=== PATIENT | female | born 1980 | race Asian ===

== ENCOUNTER → 2021-04-01 | Outpatient (CLI) | payer OTHER ==
[2021-04-02 05:07] LABS: RUBELLA AB IGG-REFLAB 4.76 index (Immune >0.99); RUBEOLA (MEASLES) IGG >300.0 AU/mL (Immune >16.4)
== END | disposition home or self-care (01) ==
LOC: LABPV 11:25
PROVIDERS: ATTEND Internal Medicine
DX: Z02.1 Encounter for pre-employment examination (principal)
CPT/HCPCS: 86706; 86735; 86762; 86765; 86787

== ENCOUNTER → 2022-01-01 | Outpatient (CLI) | payer OTHER ==
[2022-01-01 09:36] LABS: BILIRUBIN,URINE NEGATIVE (NEGATIVE); GLUCOSE, URINE (UA) NEGATIVE (NEGATIVE); KETONES,URINE NEGATIVE (NEGATIVE); LEUKOCYTE ESTERASE ,URINE LARGE (NEGATIVE); NITRATE,URINE NEGATIVE (NEGATIVE); OCCULT BLOOD,URINE NEGATIVE (NEGATIVE); PH,URINE 6.5 (5.0-8.0); PROTEIN,URINE NEGATIVE (NEGATIVE); SPECIFIC GRAVITIY, URINE 1.022 (1.003-1.030); UROBILINOGEN,URINE <=1.0 mg/dL (<=1.0)
[2022-01-01 09:36] LABS: BASOPHILS % (AUTO) 0.6 % (0.0-2.0); EOSINOPHILS % (AUTO) 1.4 % (1.0-6.0); HEMOGLOBIN 13.9 g/dL (12.0-16.0); LYMPHOCYTES # (AUTO) 0.9 K/uL (1.0-4.8); LYMPHOCYTES % (AUTO) 13.9 % (22.0-44.0); MEAN CORPUSCULAR HGB CONC 32.4 G/dL (31.0-37.0); MEAN CORPUSCULAR VOLUME 83 fL (80-100); MONOCYTES # (AUTO) 0.3 K/uL (0.1-1.0); MONOCYTES % (AUTO) 5.2 % (2.0-9.0); NEUTROPHILS # (AUTO) 5.2 K/uL (1.8-7.7); NEUTROPHILS % (AUTO) 78.9 % (40.0-70.0); PLATELET COUNT (AUTO) 311 K/uL (150-450); RED BLOOD CELL COUNT(AUTO) 5.16 MIL/uL (4.00-5.20); RED CELL DISTRIBUTION WIDTH 14.3 % (11.5-14.5)
[2022-01-01 09:55] LABS: HEMOGLOBIN A1C 5.5 % (3.8-5.6)
[2022-01-01 10:05] LABS: ALANINE AMINOTRANSFERASE 18 U/L (12-78); ALBUMIN 3.9 g/dL (3.4-5.0); ALKALINE PHOSPHATASE 57 U/L (46-116); ANION GAP 5 mmol/L (8-16); ASPARTATE AMINOTRANSFERASE 15 U/L (15-37); BILIRUBIN,TOTAL 0.5 mg/dL (0.1-1.0); CARBON DIOXIDE 32 mmol/L (22-29); CHLORIDE 100 mmol/L (98-107); CHOL/HDL RATIO 2.2 (3.9-5.7); CHOLESTEROL 214 mg/dL (131-200); CREATININE 0.63 mg/dL (0.60-1.30); GLUCOSE,RANDOM 96 mg/dL (70-110); HDL CHOLESTEROL 96 mg/dL (40-60); LDL CHOL (CALC.) 109 mg/dL (0-130); POTASSIUM 3.6 mmol/L (3.5-5.1); SODIUM SERUM 137 mmol/L (136-145); THYROID STIMULATING HORMONE 0.68 uIU/mL (0.36-3.74); TOTAL PROTEIN, SERUM 7.7 g/dL (6.4-8.2); TRIGLYCERIDES 46 mg/dL (15-150); UREA NITROGEN, BLOOD 6 mg/dL (7-18)
[2022-01-01 10:10] LABS: GLOMERULAR FILTR. RATE CALC > 60 mL/min (>60)
[2022-01-01 10:15] LABS: APPEARANCE,URINE HAZY (CLEAR); RBC,URINE 0-2 /HPF (0-2)
[2022-01-01 10:16] LABS: BACTERIA,URINE Moderate /HPF (None Seen); SQUAMOUS EPITHELIAL CELL,UR Few /LPF (None Seen)
== END | disposition home or self-care (01) ==
LOC: LABMN 09:03
PROVIDERS: ATTEND Internal Medicine
DX: Z00.00 Encounter for general adult medical examination without abnormal findings (principal)
CPT/HCPCS: 80053; 80061; 81001; 82306; 83036; 84443; 85025; 87086

== ENCOUNTER → 2022-05-06 | Outpatient (CLI) | payer OTHER ==
[~2022-05-06] VITALS: Ht 157.5 cm; Wt 59.5 kg
[~2022-05-06] MED LIST: SODIUM CHLORIDE 0.9% 1,000 ML ONE
[2022-05-06 15:06] VITALS: BP 144/78
== END | disposition home or self-care (01) ==
LOC: SRCNTR 14:31
PROVIDERS: ATTEND Internal Medicine
DX: I45.10 Unspecified right bundle-branch block (principal); R94.31 Abnormal electrocardiogram [ECG] [EKG]; R01.1 Cardiac murmur, unspecified; Z87.440 Personal history of urinary (tract) infections
CPT/HCPCS: 93005; G0463; J7030

== ENCOUNTER → 2022-05-12 | Outpatient (CLI) | payer OTHER | END | disposition home or self-care (01) | LOC: RADPV 10:08 | PROVIDERS: ATTEND Internal Medicine | DX: R01.1 Cardiac murmur, unspecified (principal) | CPT/HCPCS: 93306 ==

== ENCOUNTER → 2022-08-01 | Outpatient (CLI) | payer OTHER ==
[2022-08-01 08:56] LABS: BASOPHILS % (AUTO) 0.9 % (0.0-2.0); EOSINOPHILS % (AUTO) 1.9 % (1.0-6.0); HEMATOCRIT 40.4 % (36-46); HEMOGLOBIN 13.1 g/dL (12.0-16.0); LYMPHOCYTES # (AUTO) 1.2 K/uL (1.0-4.8); LYMPHOCYTES % (AUTO) 21.3 % (22.0-44.0); MEAN CORPUSCULAR HEMOGLOBIN 26.5 pg (26.0-34.0); MEAN CORPUSCULAR HGB CONC 32.3 G/dL (31.0-37.0); MEAN CORPUSCULAR VOLUME 82 fL (80-100); MONOCYTES # (AUTO) 0.3 K/uL (0.1-1.0); MONOCYTES % (AUTO) 5.8 % (2.0-9.0); NEUTROPHILS # (AUTO) 3.9 K/uL (1.8-7.7); NEUTROPHILS % (AUTO) 70.1 % (40.0-70.0); PLATELET COUNT (AUTO) 331 K/uL (150-450); RED BLOOD CELL COUNT(AUTO) 4.93 MIL/uL (4.00-5.20); RED CELL DISTRIBUTION WIDTH 15.1 % (11.5-14.5)
[2022-08-01 09:08] LABS: HEMOGLOBIN A1C 5.9 % (3.8-5.6)
[2022-08-01 09:17] LABS: ALANINE AMINOTRANSFERASE 21 U/L (12-78); ALBUMIN 3.7 g/dL (3.4-5.0); ALKALINE PHOSPHATASE 54 U/L (46-116); ANION GAP 12 mmol/L (8-16); ASPARTATE AMINOTRANSFERASE 17 U/L (15-37); BILIRUBIN,TOTAL 0.2 mg/dL (0.1-1.0); CALCIUM, TOTAL 8.6 mg/dL (8.8-10.5); CARBON DIOXIDE 27 mmol/L (22-29); CHLORIDE 102 mmol/L (98-107); GLOMERULAR FILTR. RATE CALC > 60 mL/min (>60); GLUCOSE,RANDOM 110 mg/dL (70-110); POTASSIUM 3.7 mmol/L (3.5-5.1); SODIUM SERUM 141 mmol/L (136-145); TOTAL PROTEIN, SERUM 7.6 g/dL (6.4-8.2)
== END | disposition home or self-care (01) ==
LOC: LABMN 08:34
PROVIDERS: ATTEND Internal Medicine
DX: Z79.899 Other long term (current) drug therapy (principal); Z82.49 Family history of ischemic heart disease and other diseases of the circulatory system
CPT/HCPCS: 80053; 83036; 85025

== ENCOUNTER → 2022-08-12 | Outpatient (CLI) | payer OTHER | END | disposition home or self-care (01) | LOC: LABMN 10:55 | PROVIDERS: ATTEND Internal Medicine | DX: E83.51 Hypocalcemia (principal) | CPT/HCPCS: 82306 ==

== ENCOUNTER 2023-04-24 18:09 | Emergency (ER) | payer OTHER ==
[~2023-04-24] VITALS: Ht 157.5 cm; Wt 59.1 kg
[2023-04-24 18:15] VITALS: BP 128/86; PULSE 104; RESP 16; TEMP 98
[2023-04-24 18:56] LABS: COVID AG,FIA SOURCE NASAL SWAB
[2023-04-24 19:16] LABS: INFLUENZA TYPE A NEGATIVE FOR TYPE A (NEGATIVE); INFLUENZA TYPE B NEGATIVE FOR TYPE B (NEGATIVE)
[2023-04-24 19:17] LABS: SARS-COV2 (COVID) ANTIGEN,FIA Negative (Negative)
[2023-04-24 19:20] LABS: RAPID GROUP A STREP NEGATIVE (NEGATIVE)
[2023-04-24] MEDS ORDERED: GUAIFDM PO (19:57)
[2023-04-24] MEDS ORDERED: CLOB15CR10 TP (19:57)
[2023-04-24] MEDS ORDERED: IBUP-45 PO (19:57)
[2023-04-24] MEDS ORDERED: ACET-66 PO (19:57)
[2023-04-24] MEDS: ACETAMINOPHEN 500 MG TABLET PO ONE (20:00)
[2023-04-24] MEDS: GuaiFENesin/D-METHORPHAN [SUGAR-FREE] 200-20MG/10 ML SYRUP UDCUP PO ONE (20:01)
[2023-04-24] MEDS: IBUPROFEN 200 MG TABLET PO ONE (20:01)
== END 2023-04-24 20:10 | disposition still patient (30) ==
LOC: EMS 18:36
DX: J06.9 Acute upper respiratory infection, unspecified (principal); L30.9 Dermatitis, unspecified; Z20.822 Contact with and (suspected) exposure to COVID-19; Z98.890 Other specified postprocedural states
CPT/HCPCS: 87430; 87804; 99284; Z7502; Z7610

== ENCOUNTER 2023-06-26 08:46 | Emergency (ER) | payer OTHER ==
[~2023-06-26] VITALS: Ht 157.5 cm; Wt 50.0 kg
[~2023-06-26 08:46] MED LIST changes: +ACET-66 PO; +CLOB15CR10 TP; +GUAIFDM PO; +IBUP-45 PO; -SODIUM CHLORIDE 0.9% 1,000 ML ONE
[2023-06-26 08:59] VITALS: TEMP 98.3
[2023-06-26] MEDS ORDERED: IBUP-1492 PO (11:11)
[2023-06-26] MEDS ORDERED: CEPH-558 PO (11:19)
[2023-06-26 11:39] VITALS: BP 118/66; PULSE 86; RESP 16
== END 2023-06-26 11:54 | disposition home or self-care (01) ==
LOC: EMS 09:01
DX: M25.532 Pain in left wrist (principal); Z98.890 Other specified postprocedural states
CPT/HCPCS: 99283

== ENCOUNTER 2023-06-28 07:19 | Emergency (ER) | payer OTHER ==
[~2023-06-28] VITALS: Ht 157.5 cm; Wt 50.0 kg
[~2023-06-28 07:19] MED LIST changes: +CEPH-558 PO; +IBUP-1492 PO
[2023-06-28 07:30] VITALS: BP 110/68; PULSE 87; RESP 16; TEMP 97.9
== END 2023-06-28 08:12 | disposition home or self-care (01) ==
LOC: EMS 07:19
DX: M25.532 Pain in left wrist (principal); Z98.890 Other specified postprocedural states
CPT/HCPCS: 99281; Z7502

== ENCOUNTER 2023-07-23 21:24 | Inpatient (IN) | payer OTHER ==
[~2023-07-23] VITALS: Ht 157.5 cm; Wt 52.7 kg
[2023-07-23] MEDS ORDERED: 0.9% SODIUM CHLORIDE 10 ML SYRINGE IVP PRN (22:00)
[2023-07-23 22:38] LABS: ANION GAP 8 mmol/L (8-16); CALCIUM, TOTAL 8.2 mg/dL (8.8-10.5); CARBON DIOXIDE 29 mmol/L (22-29); CHLORIDE 96 mmol/L (98-107); CREATININE 0.59 mg/dL (0.60-1.30); GLOMERULAR FILTR. RATE CALC > 60 mL/min (>60); GLUCOSE,RANDOM 141 mg/dL (70-110); POTASSIUM 3.7 mmol/L (3.5-5.1); SODIUM SERUM 133 mmol/L (136-145); UREA NITROGEN, BLOOD 6 mg/dL (7-18)
[2023-07-23] MEDS: SODIUM CHLORIDE 0.9% 1,600 ML IV ONE (22:42)
[2023-07-23] MEDS: PIPERACILLIN/TAZO 3.375 GM/D5W 50 ML IV ONE (22:43)
[2023-07-23 22:47] LABS: TROPONIN I-HIGH SENSITIVITY 15 ng/L (<51)
[2023-07-23 22:51] LABS: ALANINE AMINOTRANSFERASE 14 U/L (12-78); ALBUMIN 2.2 g/dL (3.4-5.0); ALKALINE PHOSPHATASE 138 U/L (46-116); ASPARTATE AMINOTRANSFERASE 21 U/L (15-37); BILIRUBIN,TOTAL 0.4 mg/dL (0.1-1.0); HCG,QUANTITATIVE 1 mIU/mL (0-6); TOTAL PROTEIN, SERUM 7.8 g/dL (6.4-8.2)
[2023-07-23 23:12] LABS: BASOPHILS % (AUTO) 0.2 % (0.0-2.0); EOSINOPHILS % (AUTO) 0.5 % (1.0-6.0); HEMATOCRIT 28.3 % (36-46); HEMOGLOBIN 8.7 g/dL (12.0-16.0); LYMPHOCYTES # (AUTO) 0.6 K/uL (1.0-4.8); MEAN CORPUSCULAR HEMOGLOBIN 21.4 pg (26.0-34.0); MEAN CORPUSCULAR HGB CONC 30.8 G/dL (31.0-37.0); MEAN CORPUSCULAR VOLUME 70 fL (80-100); MONOCYTES # (AUTO) 0.6 K/uL (0.1-1.0); MONOCYTES % (AUTO) 4.4 % (2.0-9.0); NEUTROPHILS # (AUTO) 12.6 K/uL (1.8-7.7); PLATELET COUNT (AUTO) 675 K/uL (150-450); RED BLOOD CELL COUNT(AUTO) 4.07 MIL/uL (4.00-5.20); RED CELL DISTRIBUTION WIDTH 19.2 % (11.5-14.5); WHITE BLOOD COUNT (AUTO) 13.9 K/uL (4.5-11.0)
[2023-07-23 23:13] LABS: NEUTROPHILS % (AUTO) 90.9 % (40.0-70.0)
[2023-07-23] MEDS ORDERED: ONDANSETRON HCL 4 MG/2 ML VIAL IVP PRN (23:15)
[2023-07-23 23:19] LABS: RBC MORPHOLOGY COMMENT ABNORMAL RBC MORPH
[2023-07-23 23:35] LABS: LACTATE DEHYDROGENASE 190 U/L (81-234)
[2023-07-23 23:47] LABS: D-DIMER 3.5 mg/L FEU (0.00-0.50); INR 1.1 (0.9-1.1); PROTHROMBIN TIME 11.4 SEC (9.4-11.6)
[2023-07-24 00:25] LABS: APPEARANCE,URINE HAZY (CLEAR); BILIRUBIN,URINE NEGATIVE (NEGATIVE); COLOR,URINE LIGHT YELLOW (YELLOW); GLUCOSE, URINE (UA) NEGATIVE (NEGATIVE); KETONES,URINE NEGATIVE (NEGATIVE); LEUKOCYTE ESTERASE ,URINE MODERATE (NEGATIVE); NITRATE,URINE NEGATIVE (NEGATIVE); OCCULT BLOOD,URINE MODERATE (NEGATIVE); PROTEIN,URINE NEGATIVE (NEGATIVE); SPECIFIC GRAVITIY, URINE 1.011 (1.003-1.030); UROBILINOGEN,URINE <=1.0 mg/dL (<=1.0)
[2023-07-24] MEDS: HEPARIN SODIUM,PORCINE 5,000 UNITS/ML VIAL SQ SCH (00:36)
[2023-07-24] MEDS: ACETAMINOPHEN 650 MG/ISO-OSM 65 ML IV ONE (00:36)
[2023-07-24] MEDS: SODIUM CHLORIDE 0.9% 1,000 ML IV SCH (00:37)
[2023-07-24 00:49] LABS: AMORPHOUS SEDIMENT,UR Few /LPF (None Seen); BACTERIA,URINE None Seen /HPF (None Seen); SQUAMOUS EPITHELIAL CELL,UR Moderate /LPF (None Seen); YEAST,URINE None Seen /HPF (None Seen)
[2023-07-24] MEDS ORDERED: IOHEXOL 350 MG/ML 100 ML VIAL ONE (00:49)
[2023-07-24] MEDS ORDERED: SODIUM CHLORIDE 0.9% 100 ML ONE (00:49)
[2023-07-24 00:52] LABS: TROPONIN I-HIGH SENSITIVITY 33 ng/L (<51)
[2023-07-24 01:51] LABS: % IRON SATURATION 9.1 % (22-44)
[2023-07-24] MEDS: CefTRIAXone SODIUM 2 GM in DEXTROSE 5%-WATER 50 ML IV SCH (01:51)
[2023-07-24] MEDS: DOXYCYCLINE HYCLATE 200 MG in DEXTROSE 5%-WATER 250 ML IV ONE (01:52)
[2023-07-24 01:57] LABS: RETICULOCYTE % (AUTO) 1.4 % (0.5-2.3)
[2023-07-24 06:54] VITALS: BP 112/79; PULSE 88; RESP 19; TEMP 97.8
[2023-07-24 07:55] LABS: BASOPHILS % (AUTO) 0.4 % (0.0-2.0); EOSINOPHILS % (AUTO) 0.5 % (1.0-6.0); HEMATOCRIT 24.8 % (36-46); HEMOGLOBIN 7.6 g/dL (12.0-16.0); LYMPHOCYTES # (AUTO) 0.8 K/uL (1.0-4.8); LYMPHOCYTES % (AUTO) 7.1 % (22.0-44.0); MEAN CORPUSCULAR HEMOGLOBIN 21.6 pg (26.0-34.0); MEAN CORPUSCULAR HGB CONC 30.6 G/dL (31.0-37.0); MEAN CORPUSCULAR VOLUME 70 fL (80-100); MONOCYTES # (AUTO) 0.5 K/uL (0.1-1.0); MONOCYTES % (AUTO) 4.6 % (2.0-9.0); NEUTROPHILS # (AUTO) 9.9 K/uL (1.8-7.7); PLATELET COUNT (AUTO) 548 K/uL (150-450); RED BLOOD CELL COUNT(AUTO) 3.52 MIL/uL (4.00-5.20); WHITE BLOOD COUNT (AUTO) 11.3 K/uL (4.5-11.0)
[2023-07-24 07:58] LABS: NEUTROPHILS % (AUTO) 87.4 % (40.0-70.0)
[2023-07-24 08:00] VITALS: BP 105/62; PULSE 83; RESP 19; TEMP 97.9
[2023-07-24 08:09] LABS: ANION GAP 11 mmol/L (8-16); CALCIUM, TOTAL 7.7 mg/dL (8.8-10.5); CARBON DIOXIDE 25 mmol/L (22-29); CHLORIDE 106 mmol/L (98-107); CREATININE 0.42 mg/dL (0.60-1.30); GLOMERULAR FILTR. RATE CALC > 60 mL/min (>60); GLUCOSE,RANDOM 105 mg/dL (70-110); POTASSIUM 3.5 mmol/L (3.5-5.1); SODIUM SERUM 142 mmol/L (136-145); UREA NITROGEN, BLOOD 2 mg/dL (7-18)
[2023-07-24 08:40] LABS: RBC MORPHOLOGY COMMENT ABNORMAL RBC MORPH
[2023-07-24 13:00] VITALS: BP 110/69; PULSE 92; RESP 20; TEMP 98.2
[2023-07-24] MEDS: AZITHROMYCIN 500 MG TABLET PO SCH (16:43)
[2023-07-24 18:22] LABS: INFLUENZA TYPE A NEGATIVE FOR TYPE A (NEGATIVE); INFLUENZA TYPE B NEGATIVE FOR TYPE B (NEGATIVE)
[2023-07-24 18:48] LABS: COVID AG,FIA SOURCE NASAL SWAB
[2023-07-24 19:24] LABS: SARS-COV2 (COVID) ANTIGEN,FIA Negative (Negative)
[2023-07-24 21:30] VITALS: BP 115/62; PULSE 109; RESP 20; TEMP 98.9
[2023-07-25 01:00] VITALS: BP 113/74; PULSE 103; RESP 20; TEMP 98.4
[2023-07-25 05:30] VITALS: BP 109/65; RESP 20; TEMP 97.4
[2023-07-25 09:00] VITALS: BP 111/67; PULSE 98; RESP 18; TEMP 98.3
[2023-07-25 12:00] VITALS: BP 112/73; PULSE 95; RESP 18; TEMP 98.2
[2023-07-25 12:35] LABS: URIC ACID 2.4 mg/dL (2.6-7.2)
[2023-07-25 12:46] LABS: C-REACTIVE PROTEIN QUANT 17.02 mg/dL (0.00-0.30)
[2023-07-25 16:26] VITALS: BP 126/77; PULSE 97; RESP 18; TEMP 99.3
[2023-07-25] MEDS: BENZOCAINE/MENTHOL LOZENGE PO PRN (17:56)
[2023-07-25 22:15] VITALS: BP 108/62; PULSE 98; RESP 20; TEMP 98.1
[2023-07-26 01:50] VITALS: BP 109/64; PULSE 96; RESP 20; TEMP 98.5
[2023-07-26 06:00] VITALS: BP 104/64; PULSE 87; RESP 20; TEMP 97.4
[2023-07-26 12:37] VITALS: BP 123/77; PULSE 101; RESP 18; TEMP 98
[2023-07-26 13:12] VITALS: BP 108/66; PULSE 101; RESP 18; TEMP 97.9
[2023-07-26 19:59] VITALS: BP 113/72; PULSE 104; RESP 18; TEMP 98.7
[2023-07-27 04:44] VITALS: BP 118/66; PULSE 96; RESP 18; TEMP 98.7
[2023-07-27 07:17] LABS: ANION GAP 8 mmol/L (8-16); CALCIUM, TOTAL 8.8 mg/dL (8.8-10.5); CARBON DIOXIDE 27 mmol/L (22-29); CHLORIDE 102 mmol/L (98-107); CREATININE 0.45 mg/dL (0.60-1.30); GLOMERULAR FILTR. RATE CALC > 60 mL/min (>60); GLUCOSE,RANDOM 107 mg/dL (70-110); SODIUM SERUM 137 mmol/L (136-145); UREA NITROGEN, BLOOD 4 mg/dL (7-18)
[2023-07-27 07:33] LABS: BASOPHILS % (AUTO) 0.4 % (0.0-2.0); EOSINOPHILS % (AUTO) 1.7 % (1.0-6.0); HEMATOCRIT 27.2 % (36-46); HEMOGLOBIN 8.5 g/dL (12.0-16.0); LYMPHOCYTES # (AUTO) 0.9 K/uL (1.0-4.8); LYMPHOCYTES % (AUTO) 8.9 % (22.0-44.0); MEAN CORPUSCULAR HEMOGLOBIN 22.1 pg (26.0-34.0); MEAN CORPUSCULAR HGB CONC 31.4 G/dL (31.0-37.0); MEAN CORPUSCULAR VOLUME 70 fL (80-100); MONOCYTES # (AUTO) 0.5 K/uL (0.1-1.0); MONOCYTES % (AUTO) 5.6 % (2.0-9.0); NEUTROPHILS % (AUTO) 83.4 % (40.0-70.0); PLATELET COUNT (AUTO) 597 K/uL (150-450); RED BLOOD CELL COUNT(AUTO) 3.86 MIL/uL (4.00-5.20); RED CELL DISTRIBUTION WIDTH 19.1 % (11.5-14.5); WHITE BLOOD COUNT (AUTO) 9.6 K/uL (4.5-11.0)
[2023-07-27 07:37] LABS: RBC MORPHOLOGY COMMENT ABNORMAL RBC MORPH
[2023-07-27 08:13] VITALS: BP 115/68; PULSE 108; RESP 18; TEMP 98.1
[2023-07-27 16:12] VITALS: BP 109/69; PULSE 98; RESP 20; TEMP 98.1
[2023-07-27 19:25] VITALS: BP 117/74; PULSE 103; RESP 18; TEMP 97.8
[2023-07-28 04:05] VITALS: BP 100/58; PULSE 89; RESP 18; TEMP 98.8
[2023-07-28 06:47] LABS: BASOPHILS % (AUTO) 0.5 % (0.0-2.0); EOSINOPHILS % (AUTO) 1.4 % (1.0-6.0); HEMOGLOBIN 8.5 g/dL (12.0-16.0); LYMPHOCYTES # (AUTO) 0.8 K/uL (1.0-4.8); LYMPHOCYTES % (AUTO) 8.2 % (22.0-44.0); MEAN CORPUSCULAR HEMOGLOBIN 21.9 pg (26.0-34.0); MEAN CORPUSCULAR HGB CONC 31.3 G/dL (31.0-37.0); MEAN CORPUSCULAR VOLUME 70 fL (80-100); MONOCYTES # (AUTO) 0.6 K/uL (0.1-1.0); MONOCYTES % (AUTO) 5.5 % (2.0-9.0); NEUTROPHILS # (AUTO) 8.7 K/uL (1.8-7.7); NEUTROPHILS % (AUTO) 84.4 % (40.0-70.0); PLATELET COUNT (AUTO) 574 K/uL (150-450); RED BLOOD CELL COUNT(AUTO) 3.86 MIL/uL (4.00-5.20); RED CELL DISTRIBUTION WIDTH 19.3 % (11.5-14.5); WHITE BLOOD COUNT (AUTO) 10.3 K/uL (4.5-11.0)
[2023-07-28 08:16] LABS: QUANTIFERON+, Nil Value 0.04 IU/mL; QUANTIFERON+,Mitogen Value 1.15 IU/mL; QUANTIFERON+,TB1 Antigen Value 0.03 IU/mL; QUANTIFERON+,TB2 Antigen Value 0.04 IU/mL; QUANTIFERON, TB GOLD PLUS Negative (Negative)
[2023-07-28 09:15] VITALS: BP 112/72; PULSE 96; RESP 20; TEMP 98.5
[2023-07-28 15:57] VITALS: BP 109/66; PULSE 105; RESP 20; TEMP 98.5
[2023-07-28 20:25] VITALS: BP 102/57; PULSE 98; RESP 20; TEMP 98.8
[2023-07-29 04:06] VITALS: BP 101/58; PULSE 92; RESP 20; TEMP 99.1
[2023-07-29 06:54] LABS: BASOPHILS % (AUTO) 0.2 % (0.0-2.0); EOSINOPHILS % (AUTO) 1.5 % (1.0-6.0); HEMATOCRIT 26.8 % (36-46); HEMOGLOBIN 8.3 g/dL (12.0-16.0); LYMPHOCYTES % (AUTO) 7.7 % (22.0-44.0); MEAN CORPUSCULAR HEMOGLOBIN 21.7 pg (26.0-34.0); MEAN CORPUSCULAR HGB CONC 31.1 G/dL (31.0-37.0); MEAN CORPUSCULAR VOLUME 70 fL (80-100); MONOCYTES # (AUTO) 0.5 K/uL (0.1-1.0); MONOCYTES % (AUTO) 4.3 % (2.0-9.0); NEUTROPHILS # (AUTO) 10.8 K/uL (1.8-7.7); PLATELET COUNT (AUTO) 623 K/uL (150-450); RED BLOOD CELL COUNT(AUTO) 3.84 MIL/uL (4.00-5.20); RED CELL DISTRIBUTION WIDTH 19.6 % (11.5-14.5); WHITE BLOOD COUNT (AUTO) 12.6 K/uL (4.5-11.0)
[2023-07-29 07:06] LABS: NEUTROPHILS % (AUTO) 86.3 % (40.0-70.0)
[2023-07-29 08:09] VITALS: BP 103/61; PULSE 94; RESP 18; TEMP 98.5
[2023-07-29] MEDS: MULTIVITAMINS WITH MINERALS, THERAPEUTIC TABLET PO SCH (10:14)
[2023-07-29 13:17] LABS: HIV 1-2 SCREEN 4TH GEN W/RFLX Non Reactive (Non Reactive)
[2023-07-29 17:06] LABS: S PNEUMO SOURCE Urine; STREP PNEUMONIAE AG URINE Negative (Negative)
[2023-07-29] MEDS: FERROUS SULFATE 325 MG EC TABLET PO SCH (17:49)
[2023-07-29 19:30] VITALS: BP 117/67; PULSE 116; RESP 18; TEMP 100.6
[2023-07-29] MEDS: ACETAMINOPHEN 325 MG TABLET PO PRN (19:31)
[2023-07-29 20:50] VITALS: TEMP 98.6
[2023-07-30] VITALS (8 sets, daily range): BP systolic 100–110; BP diastolic 59–73; PULSE 85–104; RESP 18–20; TEMP 97.7–101
[2023-07-30 07:15] LABS: BASOPHILS % (AUTO) 0.2 % (0.0-2.0); EOSINOPHILS % (AUTO) 1.5 % (1.0-6.0); HEMATOCRIT 26.8 % (36-46); HEMOGLOBIN 8.2 g/dL (12.0-16.0); LYMPHOCYTES # (AUTO) 0.8 K/uL (1.0-4.8); LYMPHOCYTES % (AUTO) 5.9 % (22.0-44.0); MEAN CORPUSCULAR HEMOGLOBIN 21.7 pg (26.0-34.0); MEAN CORPUSCULAR HGB CONC 30.7 G/dL (31.0-37.0); MEAN CORPUSCULAR VOLUME 71 fL (80-100); MONOCYTES # (AUTO) 0.5 K/uL (0.1-1.0); MONOCYTES % (AUTO) 3.8 % (2.0-9.0); NEUTROPHILS # (AUTO) 11.5 K/uL (1.8-7.7); PLATELET COUNT (AUTO) 571 K/uL (150-450); RED CELL DISTRIBUTION WIDTH 18.9 % (11.5-14.5)
[2023-07-30 07:25] LABS: NEUTROPHILS % (AUTO) 88.6 % (40.0-70.0)
[2023-07-30 13:06] LABS: HEPATITIS A ANTIBODY IGM Negative (Negative); HEPATITIS B CORE IGM Negative (Negative); HEPATITIS C AB (EIA) Non Reactive (Non Reactive)
[2023-07-30 15:29] LABS: APPEARANCE,URINE CLEAR (CLEAR); BILIRUBIN,URINE NEGATIVE (NEGATIVE); COLOR,URINE LIGHT YELLOW (YELLOW); GLUCOSE, URINE (UA) NEGATIVE (NEGATIVE); KETONES,URINE NEGATIVE (NEGATIVE); LEUKOCYTE ESTERASE ,URINE NEGATIVE (NEGATIVE); NITRATE,URINE NEGATIVE (NEGATIVE); OCCULT BLOOD,URINE NEGATIVE (NEGATIVE); PH,URINE 7.5 (5.0-8.0); PROTEIN,URINE NEGATIVE (NEGATIVE); SPECIFIC GRAVITIY, URINE 1.011 (1.003-1.030); UROBILINOGEN,URINE <=1.0 mg/dL (<=1.0)
[2023-07-30 17:06] LABS: LEGIONELLA PNEUMO AG URINE Negative (Negative)
[2023-07-30] MEDS: PIPERACILLIN/TAZO 3.375 GM/D5W 50 ML IV SCH (17:56)
[2023-07-31 04:39] VITALS: BP 106/64; PULSE 101; RESP 18; TEMP 101
[2023-07-31 07:02] LABS: BASOPHILS % (AUTO) 0.3 % (0.0-2.0); EOSINOPHILS % (AUTO) 1.1 % (1.0-6.0); HEMOGLOBIN 8.1 g/dL (12.0-16.0); LYMPHOCYTES # (AUTO) 0.6 K/uL (1.0-4.8); LYMPHOCYTES % (AUTO) 6.8 % (22.0-44.0); MEAN CORPUSCULAR HGB CONC 30.9 G/dL (31.0-37.0); MEAN CORPUSCULAR VOLUME 71 fL (80-100); MONOCYTES # (AUTO) 0.5 K/uL (0.1-1.0); NEUTROPHILS # (AUTO) 7.4 K/uL (1.8-7.7); PLATELET COUNT (AUTO) 549 K/uL (150-450); RED BLOOD CELL COUNT(AUTO) 3.67 MIL/uL (4.00-5.20); RED CELL DISTRIBUTION WIDTH 18.9 % (11.5-14.5); WHITE BLOOD COUNT (AUTO) 8.6 K/uL (4.5-11.0)
[2023-07-31 07:10] VITALS: BP 103/70; PULSE 81; RESP 18; TEMP 98.1
[2023-07-31 07:35] LABS: NEUTROPHILS % (AUTO) 85.8 % (40.0-70.0)
[2023-07-31 07:36] LABS: RBC MORPHOLOGY COMMENT ABNORMAL RBC MORPH
[2023-07-31 16:00] VITALS: BP 105/68; PULSE 78; RESP 18; TEMP 98.5
[2023-07-31] MEDS: LIDOCAINE 1% 10 ML VIAL IM ONE (16:48)
[2023-07-31 19:55] VITALS: BP 120/69; PULSE 98; RESP 18; TEMP 99.7
[2023-07-31 19:55] LABS: SPECIMENTYPE,BODY FLUID SYNOVIAL
[2023-07-31 21:41] LABS: APPEARANCE,SPUN,BODY FLUID CLEAR (CLEAR); APPEARANCE,UNSPUN,BODY FLUID TURBID (CLEAR); COLOR,BODY FLUID ORANGE (LT YELLOW); TOTAL VOLUME,BODY FLUID 3 mL
[2023-07-31 21:43] LABS: BASOPHILS,BODY FLUID 0 %; CRYSTALS, SYNOVIAL FLUID None Seen (None Seen); EOSINOPHILS,BF (ANAL) 0 %; LYMPHOCYTES,BODY FLUID 2 %; MONOCYTES,BODY FLUID 4 %; NEUTROPHILS,BODY FLUID 94 %; WBC, BODY FLUID 21680 /cu. mm.
[2023-08-01 00:01] VITALS: BP 101/59; PULSE 92; RESP 18; TEMP 98.5
[2023-08-01 05:45] VITALS: BP 113/67; PULSE 88; RESP 18; TEMP 98.5
[2023-08-01 08:01] VITALS: BP 101/66; PULSE 87; RESP 18; TEMP 97.9
[2023-08-01 15:48] VITALS: BP 101/63; PULSE 91; RESP 18; TEMP 99.2
[2023-08-01] MEDS: VANCOMYCIN HCL 1.25 GM in DEXTROSE 5%-WATER 250 ML IV ONE (16:09)
[2023-08-01 19:25] VITALS: BP 111/70; PULSE 100; RESP 18; TEMP 98.9
[2023-08-01 22:06] LABS: ANA,IFA (TITER & PATTERN) Negative
[2023-08-01] MEDS: VANCOMYCIN HCL 1 GM in DEXTROSE 5%-WATER 250 ML IV SCH (23:36)
[2023-08-02 05:55] VITALS: BP 100/62; PULSE 85; RESP 18; TEMP 98.1
[2023-08-02 07:57] VITALS: BP 104/63; PULSE 91; RESP 18; TEMP 98
[2023-08-02 08:28] LABS: ANION GAP 12 mmol/L (8-16); CALCIUM, TOTAL 9.1 mg/dL (8.8-10.5); CARBON DIOXIDE 25 mmol/L (22-29); CHLORIDE 99 mmol/L (98-107); CREATININE 0.64 mg/dL (0.60-1.30); GLOMERULAR FILTR. RATE CALC > 60 mL/min (>60); GLUCOSE,RANDOM 132 mg/dL (70-110); POTASSIUM 3.7 mmol/L (3.5-5.1); SODIUM SERUM 136 mmol/L (136-145); UREA NITROGEN, BLOOD 7 mg/dL (7-18)
[2023-08-02 16:07] VITALS: BP 99/64; PULSE 102; RESP 20; TEMP 98.5
[2023-08-02 20:29] VITALS: BP 128/89; PULSE 116; RESP 20; TEMP 98.8
[2023-08-02 22:00] VITALS: PULSE 103
[2023-08-03 05:52] VITALS: BP 100/55; PULSE 89; RESP 20; TEMP 98.3
[2023-08-03 06:59] LABS: ANION GAP 10 mmol/L (8-16); C-REACTIVE PROTEIN QUANT 12.38 mg/dL (0.00-0.30); CALCIUM, TOTAL 9.4 mg/dL (8.8-10.5); CARBON DIOXIDE 27 mmol/L (22-29); CHLORIDE 97 mmol/L (98-107); GLOMERULAR FILTR. RATE CALC > 60 mL/min (>60); GLUCOSE,RANDOM 154 mg/dL (70-110); POTASSIUM 3.6 mmol/L (3.5-5.1); SODIUM SERUM 134 mmol/L (136-145); UREA NITROGEN, BLOOD 7 mg/dL (7-18); VANCOMYCIN,RANDOM 19.8 mcg/mL (25.0-50.0)
[2023-08-03 08:33] VITALS: BP 95/61; PULSE 95; RESP 20; TEMP 98.2
[2023-08-03 15:35] VITALS: BP 100/64; PULSE 96; RESP 18; TEMP 98.1
[2023-08-03] MEDS: VANCOMYCIN HCL 750 MG in DEXTROSE 5%-WATER 250 ML IV SCH (17:38)
[2023-08-03 19:41] VITALS: BP 114/69; PULSE 99; RESP 18; TEMP 99.6
[2023-08-04 04:35] VITALS: BP 100/57; PULSE 94; RESP 18; TEMP 98.9
[2023-08-04 06:06] LABS: LYME TOTAL ANTIBODY CIA Negative (Negative)
[2023-08-04 07:26] LABS: ANION GAP 10 mmol/L (8-16); CALCIUM, TOTAL 8.8 mg/dL (8.8-10.5); CARBON DIOXIDE 26 mmol/L (22-29); CHLORIDE 99 mmol/L (98-107); GLOMERULAR FILTR. RATE CALC > 60 mL/min (>60); GLUCOSE,RANDOM 140 mg/dL (70-110); POTASSIUM 3.4 mmol/L (3.5-5.1); SODIUM SERUM 135 mmol/L (136-145); UREA NITROGEN, BLOOD 7 mg/dL (7-18)
[2023-08-04 08:02] VITALS: BP 105/63; PULSE 101; RESP 18; TEMP 99.3
[2023-08-04 12:06] LABS: PARVOVIRUS B19 AB IGM 0.2 index (0.0-0.8)
[2023-08-04 16:08] VITALS: BP 111/66; PULSE 98; RESP 18; TEMP 98.2
[2023-08-04 20:19] VITALS: BP 108/60; PULSE 113; RESP 18; TEMP 101.3
[2023-08-04 23:30] VITALS: BP 110/77; PULSE 104; RESP 20; TEMP 98.5
[2023-08-05 05:17] VITALS: BP 98/68; PULSE 78; RESP 18; TEMP 98.7
[2023-08-05 06:25] LABS: ANION GAP 9 mmol/L (8-16); C-REACTIVE PROTEIN QUANT 12.57 mg/dL (0.00-0.30); CALCIUM, TOTAL 9.3 mg/dL (8.8-10.5); CARBON DIOXIDE 27 mmol/L (22-29); CHLORIDE 100 mmol/L (98-107); GLOMERULAR FILTR. RATE CALC > 60 mL/min (>60); GLUCOSE,RANDOM 107 mg/dL (70-110); POTASSIUM 3.8 mmol/L (3.5-5.1); SODIUM SERUM 136 mmol/L (136-145); UREA NITROGEN, BLOOD 6 mg/dL (7-18)
[2023-08-05 08:06] VITALS: BP 96/58; PULSE 89; RESP 18; TEMP 98.3
[2023-08-05 15:34] VITALS: BP 119/72; PULSE 106; RESP 20; TEMP 99.2
[2023-08-05 19:46] VITALS: BP 113/69; PULSE 111; RESP 20; TEMP 100.3
[2023-08-06 00:02] VITALS: PULSE 90; TEMP 97.8
[2023-08-06] MEDS ORDERED: SODIUM CHLORIDE 3% 15 ML NEB SOLUTION NEB ONE (00:05)
[2023-08-06 05:20] VITALS: BP 115/70; PULSE 89; RESP 20; TEMP 99.4
[2023-08-06 07:09] LABS: BASOPHILS % (AUTO) 0.2 % (0.0-2.0); EOSINOPHILS % (AUTO) 1.1 % (1.0-6.0); HEMATOCRIT 25.2 % (36-46); HEMOGLOBIN 7.8 g/dL (12.0-16.0); LYMPHOCYTES % (AUTO) 6.5 % (22.0-44.0); MEAN CORPUSCULAR HEMOGLOBIN 21.9 pg (26.0-34.0); MEAN CORPUSCULAR VOLUME 71 fL (80-100); MONOCYTES # (AUTO) 0.5 K/uL (0.1-1.0); MONOCYTES % (AUTO) 3.2 % (2.0-9.0); NEUTROPHILS # (AUTO) 13.3 K/uL (1.8-7.7); PLATELET COUNT (AUTO) 572 K/uL (150-450); RED BLOOD CELL COUNT(AUTO) 3.57 MIL/uL (4.00-5.20); RED CELL DISTRIBUTION WIDTH 19.7 % (11.5-14.5); WHITE BLOOD COUNT (AUTO) 14.9 K/uL (4.5-11.0)
[2023-08-06 08:03] VITALS: BP 115/76; PULSE 91; RESP 20; TEMP 99
[2023-08-06 08:44] LABS: RBC MORPHOLOGY COMMENT ABNORMAL RBC MORPH
[2023-08-06 12:47] LABS: MTB PCR w/Rif. Resistance-SPUT NOT DETECTED (Not Detectd)
[2023-08-06 12:54] LABS: MTB PCR w/Rif. Resistance-SPUT NOT DETECTED (Not Detectd)
[2023-08-06 15:36] VITALS: BP 113/66; PULSE 96; RESP 20; TEMP 98.6
[2023-08-06 20:23] VITALS: BP 122/74; PULSE 112; RESP 20; TEMP 100.1
[2023-08-07 04:24] VITALS: BP 110/61; PULSE 98; RESP 18; TEMP 98.5
[2023-08-07 06:47] LABS: BASOPHILS % (AUTO) 0.2 % (0.0-2.0); HEMATOCRIT 24.8 % (36-46); HEMOGLOBIN 7.8 g/dL (12.0-16.0); LYMPHOCYTES % (AUTO) 7.5 % (22.0-44.0); MEAN CORPUSCULAR HEMOGLOBIN 22.3 pg (26.0-34.0); MEAN CORPUSCULAR HGB CONC 31.6 G/dL (31.0-37.0); MEAN CORPUSCULAR VOLUME 70 fL (80-100); MONOCYTES # (AUTO) 0.4 K/uL (0.1-1.0); MONOCYTES % (AUTO) 3.3 % (2.0-9.0); NEUTROPHILS # (AUTO) 11.5 K/uL (1.8-7.7); PLATELET COUNT (AUTO) 571 K/uL (150-450); RED BLOOD CELL COUNT(AUTO) 3.53 MIL/uL (4.00-5.20)
[2023-08-07 07:00] LABS: RBC MORPHOLOGY COMMENT ABNORMAL RBC MORPH
[2023-08-07 07:18] LABS: ALANINE AMINOTRANSFERASE 24 U/L (12-78); ALKALINE PHOSPHATASE 170 U/L (46-116); ANION GAP 9 mmol/L (8-16); ASPARTATE AMINOTRANSFERASE 16 U/L (15-37); BILIRUBIN,TOTAL 0.3 mg/dL (0.1-1.0); C-REACTIVE PROTEIN QUANT 19.45 mg/dL (0.00-0.30); CALCIUM, TOTAL 8.9 mg/dL (8.8-10.5); CARBON DIOXIDE 26 mmol/L (22-29); CHLORIDE 100 mmol/L (98-107); CREATININE 0.38 mg/dL (0.60-1.30); GLOMERULAR FILTR. RATE CALC > 60 mL/min (>60); GLUCOSE,RANDOM 102 mg/dL (70-110); POTASSIUM 3.6 mmol/L (3.5-5.1); SODIUM SERUM 135 mmol/L (136-145); TOTAL PROTEIN, SERUM 6.9 g/dL (6.4-8.2); UREA NITROGEN, BLOOD 5 mg/dL (7-18)
[2023-08-07 07:31] VITALS: BP 110/66; PULSE 95; RESP 18; TEMP 98.7
[2023-08-07 16:35] VITALS: BP 98/64; PULSE 90; RESP 17; TEMP 98.2
[2023-08-07 19:41] VITALS: BP 123/81; PULSE 112; RESP 18; TEMP 98.8
[2023-08-08 04:30] VITALS: BP 104/62; PULSE 83; RESP 18; TEMP 98.5
[2023-08-08 08:24] VITALS: BP 98/59; PULSE 94; RESP 18; TEMP 98.1
[2023-08-08] MEDS ORDERED: INDIUM IN-111 OXYQUINOLINE/.5MCL ISOTOPE 1 EA INJ INJ ONE (15:05)
[2023-08-08 16:15] VITALS: BP 114/76; PULSE 105; RESP 18; TEMP 99.1
[2023-08-08 20:17] VITALS: BP 122/69; PULSE 116; RESP 18; TEMP 99.5
[2023-08-09 00:33] VITALS: BP 117/63; PULSE 111; RESP 18; TEMP 98.6
[2023-08-09 05:00] VITALS: BP 117/75; PULSE 106; RESP 20; TEMP 98.2
[2023-08-09 08:35] VITALS: BP 129/81; PULSE 49; PULSE 99; RESP 20; TEMP 98.2
[2023-08-09 16:10] VITALS: BP 115/68; PULSE 107; RESP 18; TEMP 99.1
[2023-08-09 19:22] VITALS: BP 118/72; PULSE 116; RESP 18; TEMP 98.4
[2023-08-09 23:42] VITALS: PULSE 108; RESP 20; TEMP 98.1
[2023-08-10 04:51] VITALS: BP 114/70; PULSE 87; RESP 18; TEMP 98.3
[2023-08-10 07:26] VITALS: BP 110/59; PULSE 100; RESP 18; TEMP 98.5
[2023-08-10] MEDS ORDERED: FERR325T27 PO (08:50)
[2023-08-11 09:07] LABS: BRUCELLA ANTIBODY-IGG Negative (Negative); BRUCELLA ANTIBODY-IGM EIA Negative (Negative)
[2023-08-11 10:07] LABS: BARTONELLA HENSELAE IGG titer Negative titer (Neg:<1:320); BARTONELLA HENSELAE IGM TITER Negative titer (Neg:<1:100); BARTONELLA QUINTANA IGG TITER Negative titer (Neg:<1:320); BARTONELLA QUINTANA IGM TITER Negative titer (Neg:<1:100)
== END 2023-08-10 14:00 | disposition home or self-care (01) | DRG 871 ==
LOC: EMS 21:26 → AHU 07-24 03:42 → 5S 07-24 05:38 → 6N 07-26 13:03
PROVIDERS: ADMIT Internal Medicine; ATTEND Internal Medicine
PROC: 0S9C3ZZ Drainage of Right Knee Joint, Percutaneous Approach (ICD-10-PCS; principal; 2023-07-31)
DX: A41.9 Sepsis, unspecified organism (principal); J18.9 Pneumonia, unspecified organism; J98.11 Atelectasis; Z20.822 Contact with and (suspected) exposure to COVID-19; D64.9 Anemia, unspecified; M25.461 Effusion, right knee; J47.9 Bronchiectasis, uncomplicated; Z98.891 History of uterine scar from previous surgery; M25.561 Pain in right knee; R79.82 Elevated C-reactive protein (CRP); R63.4 Abnormal weight loss; R91.1 Solitary pulmonary nodule; Z68.21 Body mass index [BMI] 21.0-21.9, adult
CPT/HCPCS: 71045; 71250; 71260; 72193; 73723; 74160; 78806; 80048; 80053; 80074; 80202; 81001; 81003; 83540; 83550; 83605; 83615; 83735; 84145; 84443; 84460; 84484; 84550; 84702; 85025; 85045; 85379; 85610; 85651; 86038; 86060; 86140; 86308; 86431; 86480; 86592; 86611; 86618; 86622; 86635; 86638; 86707; 86709; 86747; 87015; 87040; 87075; 87101; 87205; 87206; 87207; 87350; 87389; 87430; 87449; 87491; 87517; 87556; 87591; 87804; 87899; 89051; 89060; 93005; 93306; 93971; 94640; 97116; 97162; 97165; 97535; 99285; A9547; J0131; J0696; J1644; J2543; J3370; J3490; J7030; J7050; J7060; Q9967; 36415-L1; 36415-TC; 87070